=== PATIENT | female | born 1955 | race Caucasian/White ===

== ENCOUNTER 2021-10-14 22:35 | Emergency (ER) | payer MEDICARE, BC ==
[2021-10-14] MEDS ORDERED: Morphine 2 MG/ML SYRINGE SUBCUT ONE (22:46)
[2021-10-14] MEDS ORDERED: Bacitracin/Neomycin/Polymyxin B Oint 28.4 GM Tube TOP ONE (22:55)
[2021-10-14] MEDS ORDERED: Take Home: Acetaminophen/oxyCODONE 325-5 MG, 2 Tab Pack PO ONE (23:19)
== END 2021-10-14 23:30 | disposition home or self-care (01) ==
LOC: CC.ED 22:35
DX: T20.23XA Burn of second degree of chin, initial encounter (principal); T24.211A Burn of second degree of right thigh, initial encounter; T21.22XA Burn of second degree of abdominal wall, initial encounter; T22.20XA Burn of second degree of shoulder and upper limb, except wrist and hand, unspecified site, initial encounter; I10 Essential (primary) hypertension; E11.9 Type 2 diabetes mellitus without complications; Z79.84 Long term (current) use of oral hypoglycemic drugs; Z79.899 Other long term (current) drug therapy; X08.8XXA Exposure to other specified smoke, fire and flames, initial encounter; Y92.89 Other specified places as the place of occurrence of the external cause
CPT/HCPCS: 16020; 96372; 99284; A9270-GY; J2270